=== PATIENT | female | born 1985 | race Caucasian/White ===

== ENCOUNTER 2022-03-26 16:41 | Emergency (ER) | payer OTHER, SELFPAY ==
[2022-03-26 16:48] VITALS: PULSE 69; RESP 22; TEMP 36.9; O2SAT 98
[2022-03-26 17:09] LABS: Add Manual Diff / Slide Review NO; Basophils Absolute Auto 100 /uL (0-100); Basophils Percent Auto 0.5 % (0-2); Eosinophils Absolute Auto 300 /uL (0-450); Eosinophils Percent Auto 2.2 % (2-4); Hematocrit 38.9 % (36-46); Hemoglobin 12.6 g/dL (12.0-16.0); Lymphocytes Absolute Auto 2400 /uL (1100-4500); Lymphocytes Percent Auto 15.7 % (25-40); Mean Corpuscular HGB Conc 32.3 % (30-36); Mean Corpuscular Hemoglobin 24.2 PG (26-34); Monocytes Absolute Auto 800 /uL (0-900); Monocytes Percent Auto 5.4 % (3-14); Neutrophils Absolute Auto 11500 /uL (1500-7000); Neutrophils Percent Auto 76.2 % (50-75); Platelet Count 366 X10^3/uL (150-400); Red Blood Cell Count 5.19 X10^6/uL (4.0-5.2); Red Cell Distribution Width 15.1 % (11.6-14.8); White Blood Cell Count 15.1 X10^3/uL (4.5-11.0)
[2022-03-26 17:17] LABS: Alanine Aminotransferase 22 IU/L (<35); Alkaline Phosphatase 120 U/L (38-126); Aspartate Aminotransferase 20 IU/L (14-36); BUN Creatinine Ratio 25.7 (6-22); Bilirubin Total 0.3 mg/dL (0.2-1.3); Blood Urea Nitrogen 18 mg/dL (7-17); Calcium 8.7 mg/dL (8.4-10.2); Carbon Dioxide 28 mmol/L (22-32); Chloride 104 mmol/L (98-107); Estimated Glomerular Filt Rate > 60 mL/min (>60); Globulin 4.2 g/dL (1.7-4.1); Glucose 109 mg/dL (70-100); HEMOLYSIS < 15 (0-50); Lipase 61 U/L (23-300); Potassium 4.3 mmol/L (3.4-5.1); Sodium 137 mmol/L (137-145); Total Protein 8.2 g/dL (6.3-8.2)
[2022-03-26] MEDS: ONDANSETRON 4 MG/2 ML INJ IV ×2 (17:24→19:59)
[2022-03-26] MEDS: KETOROLAC 30 MG/ML VIAL 15 MG IV (17:24)
[2022-03-26 19:18] LABS: RBC Urine 30-100/HPF (0-5/HPF); Squamous Epithelial Cell Urine 0-1 /HPF (0-5/HPF); WBC Urine 0-1/HPF (0-5/HPF)
[2022-03-26 19:19] LABS: Bacteria Urine Few (2-10); Calcium Oxalate Crystals Urine Occasional; Culture Indicated Urine Specimen Cultured; Mucus Urine 1+ (Negative)
--- NOTE | 2022-03-26 20:52 | DI.CT.S_ITS ---
PROCEDURE: CT KIDNEY URETER BLADDER (KUB) INDICATIONS: abdominal pain TECHNIQUE: Axial sections were acquired from the lung bases to the pubic symphysis. Coronal and sagittal reformats were performed. For radiation dose reduction, the following was used: automated exposure control, adjustment of mA and/or kV according to patient size. COMPARISON: None. FINDINGS: Image quality: Excellent. Lung bases: Unremarkable. Heart: No significant findings. URINARY: Right Kidney: Mild right renal enlargement. Minimal right hydronephrosis. Punctate nonobstructing right lower pole intrarenal calcification. There is trace right perinephric inflammation. Right Ureter: 6 mm calcification in the proximal right ureter at the ureteropelvic junction with Hounsfield units of 395. The distal ureter is normal caliber without other calcifications. Left Kidney: No stones or hydronephrosis. Left Ureter: No hydroureter. Bladder: Normal wall thickness. No stones. ABDOMEN: Liver: Mild hepatomegaly and minor hepatic steatosis. Gallbladder: No calcifications or wall thickening. Biliary ducts: Nondilated. Pancreas: Normal contours. Spleen: Normal size. Adrenal Glands: No nodules. Stomach and Bowel: Stomach and bowel loops are within normal limits. There is a normal caliber appendix with a small amount of high-density material at the midportion. No periappendiceal inflammation. Peritoneum: No abnormal intraperitoneal fluid. No free air. Ventral Wall: No hernia. Abdominal Nodes: There are minimally prominent right lower quadrant mesenteric lymph nodes, likely reactive. No mesenteric or retroperitoneal adenopathy by size criteria. Vessels: Aorta and inferior vena cava are normal in size. PELVIS: Pelvic Organs: The uterus is retroverted. There is a menstrual cup in place. Bilateral ovarian cysts are present. No suspicious adnexal mass. Pelvic Nodes: Unremarkable. Miscellaneous: No inguinal hernias are seen. Bones: There is vacuum phenomenon at both sacroiliac joints and mild bilateral SI joint sclerosis. IMPRESSION: 1. 6 mm obstructing right ureteropelvic junction calcification. 2. Punctate nonobstructing right intrarenal calculus. 3. Mild hepatomegaly and slight hepatic steatosis. 4. Bilateral sacroiliac joint degeneration. Dictated by: Lissy Pink M.D. on 03/26/2022 at 21:39 Approved by: Lissy Pink M.D. on 03/26/2022 at 21:46
[2022-03-26] MEDS: SODIUM CHLORIDE 0.9% 1,000 ML 1000 ML IV (21:08)
[2022-03-26] MEDS: HYDROMORPHONE 0.5 MG INJ IV ×2 (21:08→22:47)
[2022-03-26 21:21] VITALS: BP 159/88; PULSE 65; RESP 18; O2SAT 97
[2022-03-26 22:30] VITALS: BP 157/88
[2022-03-26 23:00] VITALS: BP 122/89; PULSE 68; RESP 18; O2SAT 97
[2022-03-27 00:30] VITALS: BP 130/71; PULSE 68; O2SAT 97
--- NOTE | 2022-03-27 00:31 | ED_ITS ---
HPI - General Adult General Chief complaint: Abdominal Pain Stated complaint: ABD Pain Time Seen by Provider: 03/26/22 20:51 Source: patient Mode of arrival: Ambulatory History of Present Illness HPI narrative: 36-year-old woman with mild asthma and ADD presents with what initially began as pelvic cramping that she felt was related more to menstrual cramps and over the next 12 hours localized up to the right upper flank area. She denies fevers, vomiting, diarrhea or constipation. She has not been having chest pain or palpitations. She has never had similar complaints. She did not notice vaginal discharge, dysuria gross hematuria or urinary frequency. She has never had problems with kidney stones previously. Related Data Home Medications Medication Instructions Recorded Confirmed fluticasone [Flovent HFA] inhalation 09/21/18 09/21/18 fluticasone-salmeterol [Advair inhalation 09/21/18 09/21/18 Diskus] dextroamphetamine-amphetamine 30 30 mg PO DAILY 07/08/19 07/08/19 mg tablet (Adderall) gabapentin 100 mg capsule 100 mg PO DAILY 07/08/19 07/08/19 Previous Rx's Medication Instructions Recorded amoxicillin 875 mg-potassium 1 tab PO BID #20 tabs 07/08/19 clavulanate 125 mg tablet (Augmentin) oxycodone 5 mg tablet 5 mg PO Q4H PRN pain #14 tabs 03/27/22 tamsulosin 0.4 mg capsule (Flomax) 0.4 mg PO DAILY #20 caps 03/27/22 Allergies Allergy/AdvReac Type Severity Reaction Status Date / Time No Known Drug Allergies Allergy Verified 07/08/19 08:50 Review of Systems Review of Systems Narrative: Remainder of complete review of systems is otherwise unremarkable except for that included in the HPI. Patient History Medical History (Updated 03/27/22 @ 02:04 by Surekha Khan MD) Kidney stones Social History Smoking Status: Former smoker Smoking Status: Former smoker Exam Initial Vital Signs Initial Vital Signs: Vital Signs Temperature 98.4 F 03/26/22 16:48 Pulse Rate 69 03/26/22 16:48 Respiratory Rate 22 03/26/22 16:48 Pulse Oximetry 98 03/26/22 16:48 Oxygen Delivery Method 03/26/22 16:48 General: Healthy appearing, in moderate amount of pain but. Able to give a complete and coherent history. Well-nourished well-developed HEENT: Moist mucous membranes, normal sclera with reactive pupils, Neck: No JVD, supple Respiratory: Lungs are clear to auscultation, no wheezing no rales no rhonchi. Full and symmetrical air movement Cardiac: Regular rate and rhythm no murmurs no bruits Abdomen: Soft, tender in the right anterior flank and posterior flank areas, good bowel tones, no rebound and no guarding Skin: Warm and dry, no rashes Neurologic: Grossly neurologically intact with no obvious asymmetries or abnormalities Extremities: No trauma, well perfused Psych: Cooperative, appropriate insight and affect Course Orders Ordered: ED Orders 03/26/22 17:00 Complete Blood Count AUTO DIFF Stat Comprehensive Metabolic Panel Stat Lipase Stat 03/26/22 19:04 Urine Culture Stat Urine Microscopic Stat 03/26/22 20:52 CT kidney ureter bladder (KUB) Stat Hydromorphone HCl (Hydromorphone 0.5 Mg Inj) 0.5 mg IV Q15MIN PRN PRN Reason: Pain, Last Admin: 03/26/22 22:47 Dose: 0.5 mg Documented By: Admin: 03/26/22 21:08 Dose: 0.5 mg Documented By: SUSY Discontinued Medications Sodium Chloride (Normal Saline 0.9%) 1,000 mls @ 1,000 mls/hr IV BOLUS ONE Stop: 03/26/22 21:51 Last Infusion: 03/27/22 00:40 Dose: 0 mls/hr Documented By: Admin: 03/26/22 21:08 Dose: 1,000 mls/hr Documented By: SUSY Ketorolac Tromethamine (Ketorolac 30 Mg/Ml Vial) 15 mg IV NOW ONE Stop: 03/26/22 16:59 Last Admin: 03/26/22 17:24 Dose: 15 mg Documented By: OUMOU Ketorolac Tromethamine (Ketorolac 30 Mg/Ml Vial) 15 mg IV NOW ONE Stop: 03/26/22 20:53 Last Admin: 03/26/22 21:05 Dose: Not Given Documented By: SUSY Ondansetron HCl (Ondansetron 4 Mg/2 Ml Inj) 4 mg IV NOW ONE Stop: 03/26/22 16:59 Last Admin: 03/26/22 17:24 Dose: 4 mg Documented By: OUMOU Ondansetron HCl (Ondansetron 4 Mg/2 Ml Inj) 4 mg IV NOW ONE Stop: 03/26/22 19:55 Last Admin: 03/26/22 19:59 Dose: 4 mg Documented By: OUMOU Oxycodone HCl (Oxycodone Ir 5 Mg Tablet) 10 mg PO NOW ONE Stop: 03/27/22 01:23 Last Admin: 03/27/22 01:28 Dose: 10 mg Documented By: SUSY Oxycodone/Acetaminophen (Oxycodone/Acetaminophen 5/325 Tablet) 1 tab PO NOW ONE Stop: 03/27/22 01:07 Last Admin: 03/27/22 01:23 Dose: Not Given Documented By: SUSY Oxycodone/Acetaminophen (Oxycodone/Apap 5/325 Prepack) 1 bottle MISC SEEINSTR ONE Stop: 03/27/22 01:07 Last Admin: 03/27/22 01:23 Dose: Not Given Documented By: SUSY Tamsulosin HCl (Tamsulosin 0.4 Mg Capsule) 0.4 mg PO NOW ONE Stop: 03/27/22 01:07 Last Admin: 03/27/22 01:15 Dose: 0.4 mg Documented By: SUSY Vital Signs Vital signs: Vital Signs - 8 hr 03/26/22 21:21 03/26/22 22:30 03/26/22 23:00 Pulse Rate 65 68 Respiratory Rate 18 18 Blood Pressure 159/88 H 157/88 H 122/89 Pulse Oximetry 97 97 Oxygen Delivery Method Room Air Room Air 03/27/22 00:30 Pulse Rate 68 Respiratory Rate Blood Pressure 130/71 Pulse Oximetry 97 Oxygen Delivery Method Room Air Medical Decision Making Lab Data Result diagrams: 03/26/22 17:00 03/26/22 17:00 Labs: Lab Results 03/26/22 03/26/22 03/26/22 Range/Units 17:00 17:00 19:04 WBC 15.1 H (4.5-11.0) X10^3/uL RBC 5.19 (4.0-5.2) X10^6/uL Hgb 12.6 (12.0-16.0) g/dL Hct 38.9 (36-46) % MCV 75.0 L (80-100) fL MCH 24.2 L (26-34) PG MCHC 32.3 (30-36) % RDW 15.1 H (11.6-14.8) % Plt Count 366 (150-400) X10^3/uL Neut % (Auto) 76.2 H (50-75) % Lymph % (Auto) 15.7 L (25-40) % Alexander % (Auto) 5.4 (3-14) % Eos % (Auto) 2.2 (2-4) % Baso % (Auto) 0.5 (0-2) % Neut # (Auto) 60643 H (5737-0456) /uL Lymph # (Auto) 2400 (0034-2067) /uL Alexander # (Auto) 800 (0-900) /uL Eos # (Auto) 300 (0-450) /uL Baso # (Auto) 100 (0-100) /uL Sodium 137 (137-145) mmol/L Potassium 4.3 (3.4-5.1) mmol/L Chloride 104 (98-107) mmol/L Carbon Dioxide 28 (22-32) mmol/L BUN 18 H (7-17) mg/dL Creatinine 0.70 (0.52-1.04) mg/dL Estimated GFR > 60 (>60) mL/min BUN/Creatinine Ratio 25.7 H (6-22) Glucose 109 H (70-100) mg/dL Calcium 8.7 (8.4-10.2) mg/dL Total Bilirubin 0.3 (0.2-1.3) mg/dL AST 20 (14-36) IU/L ALT 22 (<35) IU/L Alkaline Phosphatase 120 (38-126) U/L Total Protein 8.2 (6.3-8.2) g/dL Albumin 4.0 (3.5-5.0) g/dL Globulin 4.2 H (1.7-4.1) g/dL Albumin/Globulin Ratio 1.0 (1.0-2.8) Lipase 61 (23-300) U/L Urine RBC 30-100/hpf H (0-5/HPF) Urine WBC 0-1/hpf (0-5/HPF) Ur Squamous Epith Cells 0-1 /hpf (0-5/HPF) Calcium Oxalate Crystal Occasional H Urine Bacteria Few (2-10) H (None) Urine Mucus 1+ H (Negative) Urine Yeast 0-1/hpf (None) Ur Culture Indicated? Specimen cultured Point of Care Testing Test Results Negative Urine Dip Bedside Urine Glucose Negative Bedside Urine Bilirubin - Negative Bedside Urine Ketone - Negative Urine Specific Lindsay 1.030 Bedside Urine Occult Blood +++ Bedside Urine pH 5.5 Bedside Urine Protein + 30 Bedside Urine Urobilinogen - Negative Bedside Urine Nitrite - Negative Bedside Urine Leukocytes - Negative Esterase Point of care testing: Point of Care Testing Test Results Negative Urine Dip Bedside Urine Glucose Negative Bedside Urine Bilirubin - Negative Bedside Urine Ketone - Negative Urine Specific Lindsay 1.030 Bedside Urine Occult Blood +++ Bedside Urine pH 5.5 Bedside Urine Protein + 30 Bedside Urine Urobilinogen - Negative Bedside Urine Nitrite - Negative Bedside Urine Leukocytes - Negative Esterase Imaging Data CT scan - abdomen/pelvis: Radiologist's Impression: FINDINGS:? Image quality:? Excellent.? ? Lung bases:? Unremarkable.? ? Heart:? No significant findings. ? URINARY: Right Kidney:? Mild right renal enlargement.? Minimal right hydronephrosis.? Punctate nonobstructing right lower pole intrarenal calcification.? There is trace right perinephric inflammation. Right Ureter:? 6 mm calcification in the proximal right ureter at the ureteropelvic junction with Hounsfield units of 395. The distal ureter is normal caliber without other calcifications.? ? Left Kidney: ? No stones or hydronephrosis. Left Ureter:? No hydroureter.? ? Bladder:? Normal wall thickness. No stones. ? ? ? ABDOMEN: Liver:? Mild hepatomegaly and minor hepatic steatosis. Gallbladder:? No calcifications or wall thickening. Biliary ducts:? Nondilated. Pancreas:? Normal contours. Spleen:? Normal size. Adrenal Glands:? No nodules. ? Stomach and Bowel:? Stomach and bowel loops are within normal limits.? There is a normal caliber appendix with a small amount of high-density material at the midportion.? No periappendiceal inflammation. Peritoneum:? No abnormal intraperitoneal fluid.? No free air.? ? Ventral Wall: ? No hernia.? Abdominal Nodes:? There are minimally prominent right lower quadrant mesenteric lymph nodes, likely reactive.? No mesenteric or retroperitoneal adenopathy by size criteria. Vessels:? Aorta and inferior vena cava are normal in size.? ? PELVIS: Pelvic Organs:? The uterus is retroverted.? There is a menstrual cup in place.? Bilateral ovarian cysts are present.? No suspicious adnexal mass. Pelvic Nodes: Unremarkable. Miscellaneous: No inguinal hernias are seen. ? ? ? Bones:? There is vacuum phenomenon at both sacroiliac joints and mild bilateral SI joint sclerosis. ? IMPRESSION:? ? 1. 6 mm obstructing right ureteropelvic junction calcification. ? 2. Punctate nonobstructing right intrarenal calculus. ? 3. Mild hepatomegaly and slight hepatic steatosis. ? 4. Bilateral sacroiliac joint degeneration. ? ? ? Dictated by: Lissy Pink M.D. on 03/26/2022 at 21:39 ? ? MDM Narrative Medical decision making narrative: 36-year-old woman with initial pelvic cramping than right flank pain with CT scan showing a 6 mm obstructing stone in the proximal right ureter. She does not have a fever and urine does not look like it is infected. She has a very mild leukocytosis that I think is more likely demargination than infection. Pain is been well controlled with fluids, Toradol and Dilaudid. She has now had oral oxycodone and pain continues to be controlled. Findings reviewed with Dr. Joseph, urology. He feels that discharge home his safe and he will plan on having her follow-up as an outpatient in the office. She will be discharged home on Flomax, will be given a urine strainer, oxycodone for pain control and instructions to contact Dr. Joseph. Clearly reviewed with her signs and symptoms of infection including pyelonephritis and explained the urgency associated with any type of infection proximal to a kidney stone. Questions are answered and she is safe for home discharge Discharge Plan Departure Patient Disposition: Home Clinical Impression: Kidney stone on right side Instructions: DI for Kidney Stones Activity Restrictions/Additional Instructions: Thank you for coming in today You do have a 6 mm kidney stone on the right side that is stuck in your ureter, the 2 between your bladder and your kidney. It is closer to your kidney at this point. We need to give your body a chance to allow this to pass. I am going to give you a prescription for Flomax which can help increase the possibility that a larger stone will pass without any other medical intervention. I have also given you a brief prescription for oxycodone that may be used for acute pain c ontrol. Prescriptions have been electronically transmitted to [facility] in [place] You do need to follow-up with Dr. Joseph, urology. Please contact [facility]rology office at [phone] explain that you are in the emergency department, you have a 6 mm kidney stone on the right side and need to follow-up with Dr. Joseph. If you find that you are getting worse or develop any new symptoms, particularly fever or pain with urinating, please feel free to return to the emergency department for further evaluation. Prescriptions: New tamsulosin [Flomax] 0.4 mg capsule 0.4 mg PO DAILY Qty: 20 0RF oxycodone 5 mg tablet 5 mg PO Q4H PRN (Reason: pain) Qty: 14 0RF No Action fluticasone INHALATION fluticasone-salmeterol INHALATION dextroamphetamine-amphetamine [Adderall] 30 mg tablet 30 mg PO DAILY gabapentin 100 mg capsule 100 mg PO DAILY amoxicillin-pot clavulanate [Augmentin] 875-125 mg tablet 1 tab PO BID Qty: 20 0RF Referrals: Tahir Anderson DO [Primary Care Provider] -
[2022-03-27] MEDS: TAMSULOSIN 0.4 MG CAPSULE PO (01:15)
[2022-03-27] MEDS: OXYCODONE IR 5 MG TABLET 10 MG PO (01:28)
[2022-03-27 02:19] VITALS: BP 123/75; PULSE 84; RESP 18; O2SAT 95
== END 2022-03-27 02:19 | disposition home or self-care (01) ==
PROVIDERS: Emergency Medicine; Emergency Provider Emergency Medicine; PCP Family Medicine
DX: N20.0 Calculus of kidney (principal)
CPT/HCPCS: 74176; 80053; 81003; 81015; 81025; 83690; 85025; 87086; 96361; 96374; 96375; 96376; 99284; J1170; J1885; J2405

== ENCOUNTER → 2022-03-29 06:52 | Outpatient (CLI) | payer OTHER, SELFPAY ==
--- NOTE | 2022-03-29 06:56 | DI.RAD.S_ITS ---
PROCEDURE: XR KUB INDICATIONS: Kidney stone TECHNIQUE: One view of the abdomen acquired. COMPARISON: [facility], CT, CT KIDNEY URETER BLADDER (KUB), 03/26/2022, 21:00. FINDINGS: Surgical changes and devices: None. Bowel: Bowel gas pattern is normal. Soft tissues: No suspicious abdominal calcifications. Visualized solid organ contours appear normal in size. Right UPJ stone might be obscured by overlying bowel gas. Bones: No suspicious bony lesions. IMPRESSION: Right UPJ stone present 3 days ago may potentially be shadowed by overlying bowel gas. Dictated by: Bo Montoya M.D. on 03/29/2022 at 12:23 Approved by: Bo Monotya M.D. on 03/29/2022 at 12:24
== END ==
PROVIDERS: PCP Family Medicine; Referring Provider Urology; Visit Provider Urology
DX: N20.0 Calculus of kidney (principal); Z20.822 Contact with and (suspected) exposure to COVID-19
CPT/HCPCS: 74018; 87635

== ENCOUNTER → 2022-03-29 10:55 | Outpatient (CLI) | payer OTHER, SELFPAY ==
[2022-03-29 11:56] LABS: COVID19 -Nasal RAPID Negative (Negative)
== END ==
PROVIDERS: PCP Family Medicine; Visit Provider Urology
DX: Z20.822 Contact with and (suspected) exposure to COVID-19 (principal)
CPT/HCPCS: 87635

== ENCOUNTER 2022-03-31 12:38 | Day surgery (SDC) | payer OTHER, SELFPAY ==
[2022-03-30 07:22] VITALS: BMI 60.3
[2022-03-31] MEDS: LACTATED RINGERS 1,000 ML 42 ML IV (13:30)
[2022-03-31 13:31] VITALS: BP 153/97; PULSE 80; RESP 16; TEMP 36.8; O2SAT 97; BMI 60.3
--- NOTE | 2022-03-31 13:32 | PM.PREOP ---
Pre-operative Note COVID-19 COVID-19 status: Negative Result date/Date tested (Pos, Neg/Pending): 03/29/22 Criteria for continued procedure: Non-surgical alternatives not available or appropriate per current SOC Interval Note History & Physical reviewed/Exam performed by Physician: Yes Changes to H&P: No
[2022-03-31] MEDS: CIPROFLOXACIN 400 MG/200 ML PIGGYBACK 200 MG IV (13:46)
[2022-03-31 13:49] VITALS: BMI 60.3
[2022-03-31 13:52] VITALS: BMI 60.3
--- NOTE | 2022-03-31 14:07 | SUR.OPER ---
Lithotomy on padded OR bed, head on pillow, arms secured on padded arm boards at <90 degrees abduction. Legs secured in padded yellow fins stirrups.
--- NOTE | 2022-03-31 14:43 | P.OP_ITS ---
Procedure & Clinicians Procedure: Right ureteroscopy right ureteral stone with laser lithotripsy, stone basketing and extraction, right stent placement Same procedure as scheduled: Yes Indications: This is a pleasant 36-year-old female who presented to the emergency department complaints of abdominal pain was found to have a right ureteral stone. This is a 6+ mm stone and the like of passing is low she has elected endoscopic treatment and presents this time to have the stone removed by those means. Surgeon: Tahir Joseph Click Yes if Unassisted: Yes Anesthesia Type: General Operative Notes Findings: Findings: External genitalia normal. Urethral meatus and urethra normal. Ureteral orifices in normal position with clear efflux. No abnormalities are noted within the bladder bladder mucosa is normal. The stone is noted in the distal 3rd of the ureters below the vessel. Was yellow carrero and rather crystalline in appearance. It appeared that all large fragments had been removed at the end of the procedure. A 7 Estonian by multi length stent was left in place without a nylon string. The patient had a significant amount of edema and the stent will therefore be left in place for approximately 10-14 days to let this resolved. No other abnormalities were noted the stones were forwarded to pathology for composition analysis. Closure Type: not applicable Specimen(s): other (Right ureteral stone fragments to pathology for composition analysis) Applied: other (7 Estonian by multi length ureteral stent left in good position in the right collecting system without a string.) Estimated Blood Loss (mL): 0 Procedure in detail: Procedure in detail: After informed consent was obtained, the patient was identified and brought to the operating room where she was placed in a supine position on the operative table and anesthesia was induced and maintained. After ensuring an adequate level of anesthesia the patient was transitioned to the lithotomy position where she was prepped, draped and prepared for transurethral procedure. After prepping draping having a timeout and ensuring an adequate level of anesthesia a 21 Estonian cystoscope was passed through the ur ethra and into the bladder cystoscopy was performed. The right ureteral orifice was identified and a hybrid guidewire was passed up and in the collecting system this was reserved as a safety wire the scope was reinserted and a 2nd wire was inserted into the collecting system under fluoroscopic visualization and this was used as a working wire. The cystoscope was backed out the bladder was drained and the semi rigid ureteral scope was passed over the wire to the level stone. The wire was removed and the laser fiber inserted. Laser energy was delivered to the stone fragmenting it into larger pieces. One was broken up sufficiently the laser fiber was put to standby and removed. A Nitinol basket was then inserted and the stones were grasped cysts sheikh Linda and brought out dropped within the bladder until all fragments were removed. Scope was once again inserted into the ureter and ureter visualized and no further large fragments were noted. These maneuvers were done under direct vision and fluoroscopic guidance. The cystoscope was then once again inserted and the fragments of back UA did. The scope was again removed and the wire backloaded through the scope that is the safety wire was backloaded through the scope the cystoscope reinserted stent passed over the wire position in the renal pelvis under fluoroscopic visualization in the bladder under direct vision. Nylon heart is was removed stent was left in good position the patient's bladder was drained and she was awakened. She had tolerated the procedure well, there were no complications and the patient will be discharged to home with the stent in place. Patient will follow-up in my office and 10-14 days with a KUB for stent removal. Complications: none Post-operative Condition: stable Disposition: PACU Plan for aftercare: Discharge to home to follow up my office in 10-14 days with a KUB for likely stent removal.
[2022-03-31 14:46] VITALS: BP 128/88; PULSE 90; RESP 16; TEMP 37.1; O2SAT 94
[2022-03-31 14:56] VITALS: BP 117/80; PULSE 84; RESP 16; O2SAT 98
[2022-04-04 20:13] LABS: Ca oxalate dihydrate 20 % (.); Ca oxalate monohydr 80 % (.); Size 7x3 mm (.)
== END 2022-03-31 15:30 | disposition home or self-care (01) ==
PROVIDERS: PCP Family Medicine; Referring Provider Urology; Visit Provider Urology
PROC: (CPT 52356; principal; 2022-03-31 13:45)
PROC: (CPT 52356; 2022-03-31 13:45)
DX: N20.1 Calculus of ureter (principal); E66.01 Morbid (severe) obesity due to excess calories; J45.909 Unspecified asthma, uncomplicated; Z68.44 Body mass index [BMI] 60.0-69.9, adult
CPT/HCPCS: 52356; 76000; 82365; 82962; J0744; J1885; J2250; J2405; J2704; J3010

== ENCOUNTER → 2022-04-11 18:00 | Outpatient (CLI) | payer OTHER, SELFPAY ==
--- NOTE | 2022-04-11 18:01 | DI.RAD.S_ITS ---
PROCEDURE: XR KUB INDICATIONS: calculus of ureter TECHNIQUE: One view of the abdomen acquired. COMPARISON: [facility], CR, XR KUB, 03/29/2022, 6:57. FINDINGS: Surgical changes and devices: Right-sided double-J ureteral stent in appropriate position. No evidence of ureteral calculus present. Overlying bowel gas unremarkable Bowel: Bowel gas pattern is normal. Soft tissues: No suspicious abdominal calcifications. Visualized solid organ contours appear normal in size. Bones: No suspicious bony lesions. IMPRESSION: Right-sided ureteral stent in good position. Approved by: Aaron Graham M.D. on 04/12/2022 at 15:18
== END ==
PROVIDERS: PCP Family Medicine; Referring Provider Urology; Visit Provider Urology
DX: N20.1 Calculus of ureter (principal)
CPT/HCPCS: 74018

== ENCOUNTER 2023-10-10 13:22 | Emergency (ER) | payer OTHER, SELFPAY ==
[2023-10-10] VITALS (9 sets, daily range): BP systolic 138–184; BP diastolic 64–115; PULSE 77–89; RESP 11–24; TEMP 36.6; O2SAT 93–99; BMI 64.7
--- NOTE | 2023-10-10 13:48 | DI.RAD.S_ITS ---
PROCEDURE: XR CHEST 1V INDICATIONS: Shortness of breath TECHNIQUE: One view of the chest was acquired. COMPARISON: None. FINDINGS: Surgical changes and devices: None. Lungs and pleura: Lungs are clear. No pleural effusions or pneumothorax. Mediastinum: Mediastinal contours appear normal. Heart size is normal. Bones and chest wall: No suspicious bony lesions. Overlying soft tissues appear unremarkable. IMPRESSION: No acute cardiopulmonary abnormality is seen. Dictated by: Amaris Shea M.D. on 10/10/2023 at 14:52 Approved by: Amaris Shea M.D. on 10/10/2023 at 14:52
[2023-10-10 14:28] LABS: Add Manual Diff / Slide Review NO; Basophils Absolute Auto 100 /uL (0-100); Basophils Percent Auto 0.9 % (0-2); Eosinophils Absolute Auto 300 /uL (0-450); Eosinophils Percent Auto 2.4 % (2-4); Hematocrit 38.9 % (36-46); Hemoglobin 12.6 g/dL (12.0-16.0); Lymphocytes Absolute Auto 2900 /uL (1100-4500); Lymphocytes Percent Auto 22.2 % (25-40); Mean Corpuscular HGB Conc 32.5 % (30-36); Mean Corpuscular Hemoglobin 24.1 PG (26-34); Monocytes Absolute Auto 600 /uL (0-900); Monocytes Percent Auto 4.6 % (3-14); Neutrophils Absolute Auto 9200 /uL (1500-7000); Neutrophils Percent Auto 69.9 % (50-75); Platelet Count 416 X10^3/uL (150-400); Red Blood Cell Count 5.26 X10^6/uL (4.0-5.2); Red Cell Distribution Width 15.5 % (11.6-14.8); White Blood Cell Count 13.2 X10^3/uL (4.5-11.0)
[2023-10-10 14:34] LABS: Prothrombin Time 11.5 SECONDS (9.4-12.5)
[2023-10-10 14:39] LABS: Alanine Aminotransferase 22 IU/L (<35); Albumin 4.2 g/dL (3.5-5.0); Alkaline Phosphatase 125 U/L (38-126); Aspartate Aminotransferase 26 IU/L (14-36); Bilirubin Total 0.6 mg/dL (0.2-1.3); Blood Urea Nitrogen 8 mg/dL (7-17); Calcium 9.2 mg/dL (8.4-10.2); Carbon Dioxide 26 mmol/L (22-32); Chloride 104 mmol/L (98-107); Estimated Glomerular Filt Rate > 60 mL/min (>60); Globulin 4.2 g/dL (1.7-4.1); Glucose 93 mg/dL (70-100); HEMOLYSIS < 15 (0-50); Lactate (Lactic Acid) 1.3 mmol/L (0.7-2.1); Potassium 3.9 mmol/L (3.4-5.1); Sodium 134 mmol/L (137-145); Total Protein 8.4 g/dL (6.3-8.2)
[2023-10-10 14:50] LABS: NT-proBNP (BNP-Adult 18+) 109 pg/mL (<125); Troponin I < 0.012 ng/mL (0.01-0.034)
--- NOTE | 2023-10-10 15:04 | ED_ITS ---
HPI - General Adult General Chief complaint: Hypertension Stated complaint: high BP, fluid retention Time Seen by Provider: 10/10/23 14:35 Source: patient Mode of arrival: Ambulatory History of Present Illness HPI narrative: Patient here for evaluation of her elevated blood pressure. Also ankle edema. Patient was seen by primary care about 1 or 2 months ago for referral for sleep study. At that time she thinks her systolic blood pressure in the office was 160. She was seen at a urgent care last week and her blood pressure was elevated. She was informed to keep a journal of her blood pressure at home. Her average is 170/90. Denies any headache chest pain dyspnea. No numbness tingling or weakness. She does have ongoing bilateral ankle edema but no calf pain. Has never been on blood pressure medication. She has appointment in 6 days with primary care. She does agree to start blood pressure medication today until she sees her family doctor. Related Data Home Medications Medication Instructions Recorded Confirmed fluticasone [Flovent HFA] inhalation 09/21/18 04/24/22 fluticasone-salmeterol [Advair inhalation 09/21/18 04/24/22 Diskus] dextroamphetamine-amphetamine 30 30 mg PO DAILY 07/08/19 04/24/22 mg tablet (Adderall) gabapentin 100 mg capsule 100 mg PO DAILY 07/08/19 04/24/22 Advair Diskus See Rx Instructions .Route .COMPLEX 03/31/22 04/24/22 Previous Rx's Medication Instructions Recorded tamsulosin 0.4 mg capsule (Flomax) 0.4 mg PO DAILY #20 caps 03/27/22 oxybutynin chloride 5 mg tablet 5 mg PO BID-TID PRN bladder spasms 03/31/22 #30 tabs sulfamethoxazole 800 1 tab PO BID #10 tabs 04/24/22 mg-trimethoprim 160 mg tablet (Bactrim DS) lisinopril 20 mg tablet 20 mg PO DAILY #30 tabs 10/10/23 Allergies Allergy/AdvReac Type Severity Reaction Status Date / Time adhesive AdvReac Intermediate Blister Verified 04/24/22 14:08 Review of Systems Review of Systems Narrative: GENERAL: negative chills, fatigue, malaise, fever, sweats. HEENT: negative sinus pain, ear pain, sore throat RESPIRATORY: negative dyspnea, cough CARDIOVASCULAR: negative chest pain, palpitations GASTROINTESTINAL: negative nausea, vomiting, abdominal pain : negative dysuria, frequency, hematuria MUSCULOSKELETAL: negative muscle or bony pain SKIN: negative rash, skin lesions NEUROLOGIC: negative weakness, numbness ROS Unobtainable: All systems reviewed & are unremarkable except as noted in HPI and below Patient History Medical History Right ureteral calculus Depression Asthma Kidney stones Surgical History Hx of tonsillectomy Family History Mother Diabetes mellitus CAD in the [place] artery Social History marital status: household members: spouse Smoking Status: Former smoker Smoking Status: Former smoker alcohol intake frequency: holidays/special occasions only Substance Use Type: marijuana Exam Narrative Exam Narrative: GENERAL: in no distress, not toxic not dyspneic HEAD: Normocephalic. EYES: Pupils equal round ENT: Mucous membranes moist. NECK: Trachea midline. CARDIOVASCULAR: Regular rate and rhythm RESPIRATORY: Clear to auscultation. Breath sounds equal bilaterally. No wheezes, rales, or rhonchi. GASTROINTESTINAL: Abdomen soft, non-tender EXTREMITIES: No gross deformities. NEURO: AOx4. Fast exam is negative. Clear speech no facial droop light touch intact to bilateral face and hands with strong equal human resources leader. SKIN: Warm and dry PSYCH: Not anxious, is cooperative Initial Vital Signs Initial Vital Signs: Vital Signs Temperature 97.8 F 10/10/23 13:26 Pulse Rate 89 10/10/23 13:26 Respiratory Rate 20 10/10/23 13:26 Blood Pressure 184/115 H 10/10/23 13:26 Pulse Oximetry 98 10/10/23 13:26 Oxygen Delivery Method Room Air 10/10/23 13:26 Course Orders Ordered: ED Orders 10/10/23 13:48 XR chest 1V Stat EKG-12 Lead Stat Measure peak expiratory flow ONCE RT Consult Eval and Treat NOW 10/10/23 14:20 Complete Blood Count AUTO DIFF Stat Comprehensive Metabolic Panel Stat Lactate (Lactic Acid) Stat NT-proBNP (BNP-Adult 18+) Stat Prothrombin Time INR Stat Troponin I Stat Discontinued Medications Lisinopril (Lisinopril 20 Mg Tablet) 20 mg PO NOW ONE Stop: 10/10/23 15:05 Last Admin: 10/10/23 15:28 Dose: 20 mg Documented By: RB Vital Signs Vital signs: Vital Signs - 8 hr 10/10/23 13:26 10/10/23 13:44 10/10/23 13:45 Temperature 97.8 F Pulse Rate 89 Respiratory Rate 20 Blood Pressure 184/115 H 168/90 H Pulse Oximetry 98 93 Oxygen Delivery Method Room Air 10/10/23 13:45 10/10/23 14:00 10/10/23 14:00 Temperature Pulse Rate 85 77 Respiratory Rate 24 Blood Pressure 152/85 H Pulse Oximetry 97 99 Oxygen Delivery Method 10/10/23 14:30 10/10/23 14:30 10/10/23 15:00 Temperature Pulse Rate 79 87 Respiratory Rate 11 L Blood Pressure 162/94 H Pulse Oximetry 97 98 Oxygen Delivery Method 10/10/23 15:00 10/10/23 15:28 10/10/23 15:30 Temperature Pulse Rate 84 Respiratory Rate Blood Pressure 184/90 H 184/90 H 154/79 H Pulse Oximetry Oxygen Delivery Method 10/10/23 15:30 10/10/23 16:00 10/10/23 16:00 Temperature Pulse Rate 79 79 Respiratory Rate 24 21 Blood Pressure 138/64 Pulse Oximetry 98 98 Oxygen Delivery Method Medical Decision Making Lab Data 10/10/23 14:20 10/10/23 14:20 Labs: Lab Results 10/10/23 Range/Units 14:20 WBC 13.2 H (4.5-11.0) X10^3/uL RBC 5.26 H (4.0-5.2) X10^6/uL Hgb 12.6 (12.0-16.0) g/dL Hct 38.9 (36-46) % MCV 74.0 L (80-100) fL MCH 24.1 L (26-34) PG MCHC 32.5 (30-36) % RDW 15.5 H (11.6-14.8) % Plt Count 416 H (150-400) X10^3/uL Neut % (Auto) 69.9 (50-75) % Lymph % (Auto) 22.2 L (25-40) % [place] % (Auto) 4.6 (3-14) % Eos % (Auto) 2.4 (2-4) % Baso % (Auto) 0.9 (0-2) % Neut # (Auto) 9200 H (5217-1608) /uL Lymph # (Auto) 2900 (1723-1557) /uL [place] # (Auto) 600 (0-900) /uL Eos # (Auto) 300 (0-450) /uL Baso # (Auto) 100 (0-100) /uL PT 11.5 (9.4-12.5) SECONDS INR 1.0 (0.9-1.3) Sodium 134 L (137-145) mmol/L Potassium 3.9 (3.4-5.1) mmol/L Chloride 104 (98-107) mmol/L Carbon Dioxide 26 (22-32) mmol/L BUN 8 (7-17) mg/dL Creatinine 0.47 L (0.52-1.04) mg/dL Estimated GFR > 60 (>60) mL/min BUN/Creatinine Ratio 17.0 (6-22) Glucose 93 (70-100) mg/dL Lactate 1.3 (0.7-2.1) mmol/L Calcium 9.2 (8.4-10.2) mg/dL Total Bilirubin 0.6 (0.2-1.3) mg/dL AST 26 (14-36) IU/L ALT 22 (<35) IU/L Alkaline Phosphatase 125 (38-126) U/L Troponin I < 0.012 (0.01-0.034) ng/mL NT-Pro-B Natriuret Pep 109 (<125) pg/mL Total Protein 8.4 H (6.3-8.2) g/dL Albumin 4.2 (3.5-5.0) g/dL Globulin 4.2 H (1.7-4.1) g/dL Albumin/Globulin Ratio 1.0 (1.0-2.8) Imaging Data Chest x-ray: Radiologist's Impression: [address] [address] XRay Report Signed Patient: Keyonna Ibrahim MR#: [id number] : 1985 Acct:[id number] Age/Sex: 38 / F Date of Service: 10/10/23 Loc: ED Accession Number: [id number] Procedure: XR chest 1V Ordering Provider: Tahir Cho MD PROCEDURE: XR CHEST 1V INDICATIONS: Shortness of breath TECHNIQUE: One view of the chest was acquired. COMPARISON: None. FINDINGS: Surgical changes and devices: None. Lungs and pleura: Lungs are clear. No pleural effusions or pneumothorax. Mediastinum: Mediastinal contours appear normal. Heart size is normal. Bones and chest wall: No suspicious bony lesions. Overlying soft tissues appear unremarkable. IMPRESSION: No acute cardiopulmonary abnormality is seen. Dictated by: Amaris Shea M.D. on 10/10/2023 at 14:52 Approved by: Amaris Shea M.D. on 10/10/2023 at 14:52 [facility] Narrative Medical decision making narrative: Patient here for evaluation of her elevated blood pressure. Also ankle edema. Patient was seen by primary care about 1 or 2 months ago for referral for sleep study. At that time she thinks her systolic blood pressure in the office was 160. She was seen at a urgent care last week and her blood pressure was elevated. She was informed to keep a journal of her blood pressure at home. Her average is 170/90. Denies any headache chest pain dyspnea. No numbness tingling or weakness. She does have ongoing bilateral ankle edema but no calf pain. Has never been on blood pressure medication. She has appointment in 6 days with primary care. She does agree to start blood pressure medication today until she sees her family doctor. Denies does not want a test. After history and exam CBC CMP troponin EKG chest x-ray [facility] CC: High blood pressure pedal edema Complicating co-morbidities: High blood pressure Data collected from: Patient Medical records reviewed: No recent visit here for this complaint Differential considered: Includes but not limited to hypertension STEMI non- STEMI acute kidney injury kidney failure Exam documented above, pertinent findings include: No chest pain Lab Test results independently reviewed as above. Pertinent findings: WBC 13.2 however previous WBC was higher in 2021., sodium 134 potassium 3.9 BUN 8 creatinine 0.47 troponin less than 0.012 Independently reviewed EKG normal sinus rhythm rate [address] elevation or depression Imaging studies independently reviewed: Chest x-ray no acute finding Consultations: None indicated this time Treatments: Lisinopril Re-evaluations: 4:00 p.m. blood pressure 154/79. Patient asymptomatic. Blood pressure has improved with lisinopril. Updated patient laboratory studies and exam findings. She does agree for starting lisinopril. Return precautions reviewed with her. Prescription provided for her. She is appointment in 6 days with primary care. She desires discharge home Discussion: Appropriate for discharge home. Patient has essentially asymptomatic hypertension. Elevated blood pressure was incidentally noted on visit at urgent care last week for right arm pain. She has been journaling her blood pressure at home. Not toxic at discharge. Return precautions reviewed. No chest pain no dyspnea no headache. Blood pressure is incidental finding. However appropriate for starting treatment as patient has been monitoring for the past 1 week and remains elevated. No imaging indicated other than chest x- ray Laboratory studies and exam is reassuring. Patient desires discharge home Diagnosis: Hypertension Discharge Plan Departure Patient Disposition: Home Clinical Impression: Hypertension Qualifiers: Hypertension type: unspecified Qualified Code(s): I10 - Essential (primary) hypertension Instructions: DI for High Blood Pressure, DI for Peripheral Edema -- Bilateral Activity Restrictions/Additional Instructions: Please see your family doctor as scheduled in 6 days for re-evaluation of your blood pressure. Prescription medication for blood pressure has been sent to your [facility] pharmacy to continue tomorrow. Return if worse if any questions or concerns. Keep your legs elevated when at rest to reduce ankle swelling. May need to use compression stockings to help mobilize fluid away from the feet and ankles. Prescriptions: New lisinopril 20 mg tablet 20 mg PO DAILY Qty: 30 0RF No Action fluticasone INHALATION fluticasone-salmeterol INHALATION dextroamphetamine-amphetamine [Adderall] 30 mg tablet 30 mg PO DAILY gabapentin 100 mg capsule 100 mg PO DAILY tamsulosin [Flomax] 0.4 mg capsule 0.4 mg PO DAILY Qty: 20 0RF Advair Diskus See Rx Instructions .ROUTE .COMPLEX Rx Instructions: asthma oxybutynin chloride 5 mg tablet 5 mg PO BID-TID PRN (Reason: bladder spasms) Qty: 30 0RF sulfamethoxazole-trimethoprim [Bactrim DS] 800-160 mg tablet 1 tab PO BID Qty: 10 0RF Referrals: Tahir Anderson DO [Primary Care Provider] - Stand Alone Forms: Patient Portal/API
[2023-10-10] MEDS: lisinopriL 20 MG TABLET PO (15:28)
== END 2023-10-10 16:06 | disposition home or self-care (01) ==
PROVIDERS: Emergency Provider Emergency Medicine; PCP Family Medicine
DX: I10 Essential (primary) hypertension (principal); R06.02 Shortness of breath; R60.9 Edema, unspecified
CPT/HCPCS: 36415; 71045; 80053; 83605; 83880; 84484; 85025; 85610; 93005; 93010; 99284

== ENCOUNTER → 2024-12-12 09:47 | Outpatient (CLI) | payer OTHER, SELFPAY ==
[2024-12-12 11:04] LABS: Hemoglobin A1C% w Est Avg Glu 5.9 % (4.0-6.0)
[2024-12-12 11:14] LABS: Glucose 92 mg/dL (70-99)
[2024-12-12 11:32] LABS: Follicle Stimulating Hormone 2.89 mIU/mL; Luteinizing Hormone 4.04 mIU/mL; Progesterone, Total 0.51 ng/mL
[2024-12-13 08:36] LABS: Insulin Level Total 38.6 uIU/mL (2.6-24.9)
== END ==
PROVIDERS: PCP Student in an Organized Health Care Education/Training Program; Referring Provider Obstetrics & Gynecology; Visit Provider Obstetrics & Gynecology
DX: N97.0 Female infertility associated with anovulation (principal); E28.2 Polycystic ovarian syndrome
CPT/HCPCS: 36415; 82670; 82947; 83001; 83002; 83036; 83525; 84144; 84402; 84403